=== PATIENT | male | born 2000 | race Caucasian/White ===

== ENCOUNTER 2018-06-03 15:13 | Emergency (ER) | payer BC, SELFPAY ==
[2018-06-03] VITALS (23 sets, daily range): BP systolic 100–127; BP diastolic 48–90; PULSE 92–121; RESP 14–28; TEMP 36.4; O2SAT 98–100
--- NOTE | 2018-06-03 15:21 | DI.CT_ITS ---
SYMPTOM/DIAGNOSIS: FELL, STRUCK HEAD NONCONTRAST HEAD CT: No priors. No intracranial hemorrhage, midline shift or mass effect is identified. There is a normal bowen white matter differentiation. The ventricles are intact. The basilar cisterns are patent. There are mucus retention cysts or polyps in the left maxillary sinus. There does appear to be a small fluid level noted in the left maxillary sinus. The remaining visualized paranasal sinuses are clear. The mastoid air cells are well pneumatized. The calvarium is intact. IMPRESSION: No acute intracranial process. CERVICAL SPINE CT: Multiple contiguous axial images of the cervical spine were obtained. Sagittal and coronal reformatted images were evaluated on the Siemens work station. There are no priors for comparison. There is normal alignment of the cervical spine. No acute fractures or subluxations are seen. The prevertebral soft tissues are unremarkable. IMPRESSION: No acute fractures or subluxations.
--- NOTE | 2018-06-03 15:26 | W.ED.GENAD ---
Discharge Plan Disposition Patient Disposition: HOME Condition: Improving Discharge Details Chief Complaint: Trauma Clinical Impression: Head injury, Accidental marijuana overdose Primary Care Provider: GEOVANNY,LOCAL ED Provider: Eduin Shea Home Meds and New Rx's Prescriptions: No Action venlafaxine [Effexor XR] 37.5 mg Capsule,Extended Release 24hr 37.5 mg PO DAILY RF: 0 Discharge Instructions Instructions: Head Injury (ED) Additional Instructions: Cut down on your MJ use. Do not drive or operate heavy machinery until head clear of MJ. No physical activity until all symptoms of head injury have resolved for seven days. Referrals: [facility] Emergency Dept. [Outside] - Return if symptoms worsen Medical Decision Making Upon arrival patient safely transferred from EMS stretcher to our bed. Collar displaced enough to evaluate c-spine. Tenderness noted. Collar reestablished. Plan to CT head and c-spine. Will complete exam after CT results verified. Patient exam altered do to his intoxication of marijuana, however GCS 15 at this time. He will open eyes, answer questions, and wiggle toes. Identifies right and left tactile sensation. Pt return from CT. ? of epidural hematoma to the occiput? Exam does not appreciate any soft or raised hematoma to the head. Patient is non tender to exam. He does say his left side/arm feels odd. He will follow command with lifting the arm and he has good sensation. He is tender to the abdomen with light palpation. Plan to send back for CT of thoracic spine and abdomen and pelvis. Patient Alert and recognizes friend at bedside, Laurel. He recalls his . Apprised him and GF's of CT impression and lab work. Patient more alert and tells me he will not smoke any more pot. We discussed head injury protocol. Advised no at risk activities until all symptoms resolved. He tells me he has a history f post concussive syndrome. I believe he has recovered enough to go home with friends back t college. Friends tell me they will watch aftter him. Imaging Data Radiologic Study: Imaging: CT Scan (v-rad: 1. Noacute intrcerbral abnormaility or injury. 2. Normal brain. 3. Mucosal retention cyst or polyps are seen in the left maxillary sinus. ) Radiologist's impression: C-Spine: No acute findings. Abd/pelvis: no acute findings. T-Spine CT: no acute findings. Radiologic Study #2: Imaging: CT Scan Radiologist's impression: v-rad CT Abdomen: No acute findings. CT of thoracic spine: No acute findings. Lab Data Lab results reviewed: Yes I reviewed the patient's lab results. Lab results narrative: Elevated sugar 165 otherwise all values within acceptable limits. ECG Data Interpretation: Reviewed with Dr. Gatica. Patient shivering from being cold. Wave form is aberrant from the shivering. Rhythm is sinus tachycardia. HPI General Date/Time Provider Initiated Documentation: 06/03/18 15:21. Limitations to Documentation: altered mental status (patient stoned on MJ). Information obtained by: patient and EMS. History of Present Illness 18 year old M presents to the emergency department with the chief complaint of head injury and under the influence of THC, HPI Narrative: EMS brought in 18 y/o male for reported fall after smoking to much marijuana and striking the back of his head. No report of LOC. Patient does not remember falling but remembers smoking allot of pot. EMS stated he c/o of neck pain for which they placed him a collar. He did vomit during the ride over with EMS. Patient denies any use of etoh or other illicit drugs other than pot. He tells me his neck feels better with the collar on. He is in a inflatable collar. GF arrived , Laurel, and described his fall and head injury. Basically he fell once back into Laurel's arms and she guided him to the ground. No head trauma at that time. He told her he had LOC. When trying to stand up from the ground he lost balance and fell backwards striking the back of his head on the concrete road. Laurel did not witness LOC. Related Data Home Medications Medication Instructions Recorded Confirmed venlafaxine [Effexor XR] 37.5 mg PO DAILY 06/03/18 06/03/18 Allergies Allergy/AdvReac Type Severity Reaction Status Date / Time shellfish derived Allergy Unverified 06/03/18 16:00 General Stated Complaint: Trauma VY: 2 Review of Systems Eyes Reports system reviewed and no additional complaints, except as docu ENT Reports system reviewed and no additional complaints, except as docu Cardiovascular Reports system reviewed and no additional complaints, except as docu Respiratory Reports system reviewed and no additional complaints, except as docu Gastrointestinal Reports abdominal pain, Reports nausea and Reports vomiting Genitourinary Reports system reviewed and no additional complaints, except as docu Musculoskeletal Reports other (neck pain) Neurologic Reports system reviewed and no additional complaints, except as docu PFSH Social History Smoking/Tobacco Use Status: Never Exam Const General: cooperative, no acute distress, intoxicated appearing and other (cold) Nutritional Appearance: thin Orientation: awake Limitations: altered mental status HENMT Head: normal to inspection and no palpable skull fracture Ears: hearing grossly normal bilaterally and external ears normal General nose exam: external nose normal Eyes General: appearance normal, both eyes and all related structures Neck Neck: limited ROM (collar removed. Tender to palpation to the paraspinal musculature and over the c-spine. I did not appreciate any step off. ), no lymphadenopathy and trachea midline Resp Effort & Inspection: normal respiratory effort Auscultation: clear to auscultation bilaterally Cardio Rate: regular rate Rhythm: regular rhythm Heart Sounds: S1 normal and S2 normal GI Palpation: soft and tender in the epigastrum, in the LLQ, in the RLQ, in the LUQ, in the RUQ and other (diffuse in all quadrants. ) Auscultation: normal bowel sounds Course Vital Signs Temperature 36.4 C L 06/03/18 15:15 Pulse 107 H 06/03/18 15:15 Respiratory Rate 16 06/03/18 15:15 Blood Pressure 108/61 06/03/18 15:15 Pulse Oximetry 99 06/03/18 15:15 Temperature 36.4 C L 06/03/18 15:15 Temperature Source Temporal Artery Scan 06/03/18 15:15 Pulse 107 H 06/03/18 15:15 Respiratory Rate 16 06/03/18 15:15 Blood Pressure 108/61 06/03/18 15:15 Blood Pressure Position Supine 06/03/18 15:15 Pulse Oximetry 99 06/03/18 15:15 Oxygen Delivery Method Room Air 06/03/18 15:15 Oxygen Flow Rate 0 06/03/18 15:15
--- NOTE | 2018-06-03 15:38 | ED.GENADUL_ITS ---
Discharge Plan Disposition Patient Disposition: HOME Condition: Improving Discharge Details Chief Complaint: Trauma Clinical Impression: Head injury, Accidental marijuana overdose Primary Care Provider: GEOVANNY,LOCAL ED Provider: Eduin Shea Home Meds and New Rx's Prescriptions: No Action venlafaxine [Effexor XR] 37.5 mg Capsule,Extended Release 24hr 37.5 mg PO DAILY RF: 0 Discharge Instructions Instructions: Head Injury (ED) Additional Instructions: Cut down on your MJ use. Do not drive or operate heavy machinery until head clear of MJ. No physical activity until all symptoms of head injury have resolved for seven days. Referrals: [facility] Emergency Dept. [Outside] - Return if symptoms worsen Medical Decision Making Upon arrival patient safely transferred from EMS stretcher to our bed. Collar displaced enough to evaluate c-spine. Tenderness noted. Collar reestablished. Plan to CT head and c-spine. Will complete exam after CT results verified. Patient exam altered do to his intoxication of marijuana, however GCS 15 at this time. He will open eyes, answer questions, and wiggle toes. Identifies right and left tactile sensation. Pt return from CT. ? of epidural hematoma to the occiput? Exam does not appreciate any soft or raised hematoma to the head. Patient is non tender to exam. He does say his left side/arm feels odd. He will follow command with lifting the arm and he has good sensation. He is tender to the abdomen with light palpation. Plan to send back for CT of thoracic spine and abdomen and pelvis. Patient Alert and recognizes friend at bedside, Laurel. He recalls his . Apprised him and GF's of CT impression and lab work. Patient more alert and tells me he will not smoke any more pot. We discussed head injury protocol. Advised no at risk activities until all symptoms resolved. He tells me he has a history f post concussive syndrome. I believe he has recovered enough to go home with friends back t college. Friends tell me they will watch aftter him. Imaging Data Radiologic Study: Imaging: CT Scan (v-rad: 1. Noacute intrcerbral abnormaility or injury. 2. Normal brain. 3. Mucosal retention cyst or polyps are seen in the left maxillary sinus. ) Radiologist's impression: C-Spine: No acute findings. Abd/pelvis: no acute findings. T-Spine CT: no acute findings. Radiologic Study #2: Imaging: CT Scan Radiologist's impression: v-rad CT Abdomen: No acute findings. CT of thoracic spine: No acute findings. Lab Data Lab results reviewed: Yes I reviewed the patient's lab results. Lab results narrative: Elevated sugar 165 otherwise all values within acceptable limits. ECG Data Interpretation: Reviewed with Dr. Gatica. Patient shivering from being cold. Wave form is aberrant from the shivering. Rhythm is sinus tachycardia. HPI General Date/Time Provider Initiated Documentation: 06/03/18 15:21 . Limitations to Documentation: altered mental status (patient stoned on MJ) . Information obtained by: patient and EMS . History of Present Illness 18 year old M presents to the emergency department with the chief complaint of head injury and under the influence of THC, HPI Narrative: EMS brought in 18 y/o male for reported fall after smoking to much marijuana and striking the back of his head. No report of LOC. Patient does not remember falling but remembers smoking allot of pot. EMS stated he c/o of neck pain for which they placed him a collar. He did vomit during the ride over with EMS. Patient denies any use of etoh or other illicit drugs other than pot. He tells me his neck feels better with the collar on. He is in a inflatable collar. GF arrived , Laurel, and described his fall and head injury. Basically he fell once back into Laurel's arms and she guided him to the ground. No head trauma at that time. He told her he had LOC. When trying to stand up from the ground he lost balance and fell backwards striking the back of his head on the concrete road. Laurel did not witness LOC. Related Data Home Medications Medication Instructions Recorded Confirmed venlafaxine [Effexor XR] 37.5 mg PO DAILY 06/03/18 06/03/18 Allergies Allergy/AdvReac Type Severity Reaction Status Date / Time shellfish derived Allergy Unverified 06/03/18 16:00 General Stated Complaint: Trauma VY: 2 Review of Systems Eyes Reports system reviewed and no additional complaints, except as docu ENT Reports system reviewed and no additional complaints, except as docu Cardiovascular Reports system reviewed and no additional complaints, except as docu Respiratory Reports system reviewed and no additional complaints, except as docu Gastrointestinal Reports abdominal pain, Reports nausea and Reports vomiting Genitourinary Reports system reviewed and no additional complaints, except as docu Musculoskeletal Reports other (neck pain) Neurologic Reports system reviewed and no additional complaints, except as docu PFSH Social History Smoking/Tobacco Use Status: Never Exam Const General: cooperative, no acute distress, intoxicated appearing and other (cold) Nutritional Appearance: thin Orientation: awake Limitations: altered mental status HENMT Head: normal to inspection and no palpable skull fracture Ears: hearing grossly normal bilaterally and external ears normal General nose exam: external nose normal Eyes General: appearance normal, both eyes and all related structures Neck Neck: limited ROM (collar removed. Tender to palpation to the paraspinal musculature and over the c-spine. I did not appreciate any step off. ), no lymphadenopathy and trachea midline Resp Effort & Inspection: normal respiratory effort Auscultation: clear to auscultation bilaterally Cardio Rate: regular rate Rhythm: regular rhythm Heart Sounds: S1 normal and S2 normal GI Palpation: soft and tender in the epigastrum, in the LLQ, in the RLQ, in the LUQ , in the RUQ and other (diffuse in all quadrants. ) Auscultation: normal bowel sounds Course Vital Signs Temperature 36.4 C L 06/03/18 15:15 Pulse 107 H 06/03/18 15:15 Respiratory Rate 16 06/03/18 15:15 Blood Pressure 108/61 06/03/18 15:15 Pulse Oximetry 99 06/03/18 15:15 Temperature 36.4 C L 06/03/18 15:15 Temperature Source Temporal Artery Scan 06/03/18 15:15 Pulse 107 H 06/03/18 15:15 Respiratory Rate 16 06/03/18 15:15 Blood Pressure 108/61 06/03/18 15:15 Blood Pressure Position Supine 06/03/18 15:15 Pulse Oximetry 99 06/03/18 15:15 Oxygen Delivery Method Room Air 06/03/18 15:15 Oxygen Flow Rate 0 06/03/18 15:15
[2018-06-03 15:48] LABS: Abs Immature Grans 0.02 k/cumm (0.0-0.09); Absolute Basophil Count 0.02 k/cumm (0.0-0.2); Absolute Eosinophil Count 0.03 k/cumm (0.0-0.7); Absolute Lymphocyte Count 1.67 k/cumm (1.2-3.4); Absolute Monocyte Count 0.51 k/cumm (0.11-0.7); Absolute Neutrophil Count 4.47 k/cumm (1.2-6.7); Basophils % 0.3; Eosinophils % 0.4; HCT 44.2 % (40.0-50.0); Immature Grans % 0.3; Lymphocytes % 24.9; Mean Corp. HGB Concentration 33.9 g/dL (32.0-36.0); Mean Corpuscular Hemoglobin 29.7 pg (27.0-33.0); Mean Corpuscular Volume 87.5 fL (80-95); Monocytes % 7.6; Neutrophils % 66.5; Platelet Count 171 x1000/uL (130-400); RBC 5.05 m/cumm (4.50-6.00); RBC Distribution Width 12.9 % (11.8-14.1); White Blood Cell Count 6.72 k/cumm (4.4-10.8)
[2018-06-03] MEDS: Ondansetron 4 MG/2 ML VIAL IVP (15:56)
[2018-06-03] MEDS: Normal Saline 1,000 ML 1000 ML IV (15:56)
--- NOTE | 2018-06-03 15:57 | DI.CT_ITS ---
SYMPTOM/DIAGNOSIS: ABD PAIN AFTER FALL ABDOMEN AND PELVIC CT: CT scan of the abdomen and pelvis was performed without intravenous or oral contrast material. Findings: There are no priors for comparison. The lack of IV contrast does limit evaluation of the abdominal organs. The lung bases are clear. The unenhanced visualized portions of the liver, spleen, pancreas, gallbladder, bile duct, adrenal glands, kidneys, ureters and bladder are all unremarkable. The reproductive organs are unremarkable. The bowel is unremarkable. There is a normal appendix is present. The aorta is of normal caliber. No significant abdominal or pelvic adenopathy, ascites or pneumoperitoneum is seen. The bones are intact. IMPRESSION: No acute abnormalities on this noncontrast examination. THORACIC SPINE CT: Routine noncontrast CT scan of the thoracic spine was performed. There is a right convex curvature of the thoracic spine which may be positional. No acute fractures or subluxations are seen. No central spinal canal or neural foraminal stenosis is present. IMPRESSION: No acute fracture or subluxation in the thoracic spine.
[2018-06-03 16:01] LABS: ALT 20 U/L (12-78); AST 15 U/L (15-37); Alkaline Phosphatase 66 U/L (46-116); Anion Gap 12.6 mmol/L (3-11); BUN 10 mg/dL (7-18); Bilirubin, Total 2.3 mg/dL (0.2-1.0); CO2 25.4 mmol/L (21.0-32.0); CREATININE 0.86 mg/dL (0.70-1.30); Calcium 8.8 mg/dL (8.5-10.1); Chloride 102 mmol/L (98-107); Glucose 162 mg/dL (70-100); Lipase 78 U/L (73-393); Potassium 3.2 mmol/L (3.5-5.1); Sodium 140 mmol/L (136-145)
--- NOTE | 2018-06-03 16:13 | DI.VRAD_ITS ---
EXAM: CT Head Without Intravenous Contrast EXAM DATE/TIME: 06/03/2018 3:23 PM CLINICAL HISTORY: 18 years old, male; Injury or trauma; Fall; Initial encounter; Blunt trauma (contusions or hematomas); Consciousness not specified; Injury details: Fell, striking head 2x TECHNIQUE: Axial computed tomography images of the head/brain without intravenous contrast. Coronal and sagittal reformatted images were created and reviewed. COMPARISON: No relevant prior studies available. FINDINGS: Brain: No acute intracerebral abnormality or injury. Normal brain. Ventricles: Normal. No ventriculomegaly. Bones/joints: Normal. No acute fracture. Sinuses: Mucosal retention cysts or polyps are seen in the left maxillary sinus. Mastoid air cells: Normal as visualized. No mastoid effusion. Soft tissues: Normal. IMPRESSION: 1. No acute intracerebral abnormality or injury. 2. Normal brain. 3. Mucosal retention cysts or polyps are seen in the left maxillary sinus. EXAM: CT Cervical Spine Without Intravenous Contrast EXAM DATE/TIME: 06/03/2018 3:23 PM CLINICAL HISTORY: 18 years old, male; Injury or trauma; Fall; Initial encounter; Blunt trauma (contusions or hematomas); Consciousness not specified; Injury details: Fell, striking head 2x TECHNIQUE: Axial computed tomography images of the cervical spine without intravenous contrast. Coronal and sagittal reformatted images were created and reviewed. COMPARISON: No relevant prior studies available. FINDINGS: Vertebrae: No acute fracture. Normal alignment. Discs/Spinal canal/Neural foramina: No spinal stenosis. No neural foraminal narrowing. Soft tissues: Unremarkable. IMPRESSION: No acute findings. Dictated and Authenticated by: Winston Garza MD. Ordering:ZAINA LITTLE MD
--- NOTE | 2018-06-03 16:20 | W.ED.PROC ---
Medical Decision Making 06/03/18 EKG 15: 54 Rate 109, KS 142, QTc 498, QRS 116, sinus tachycardia, no significant ST elevation or depression, no T wave inversions, minimal peaking of T waves in V3. Notable artifact throughout. Patient is shivering. No evidence of Apple waves.
--- NOTE | 2018-06-03 17:37 | DI.VRAD_ITS ---
EXAM: CT Abdomen and Pelvis Without Intravenous Contrast EXAM DATE/TIME: 06/03/2018 4:36 PM CLINICAL HISTORY: 18 years old, male; Injury or trauma; Fall; Initial encounter; Blunt; Generalized; Patient HX: Abdominal pain after fallint to ground TECHNIQUE: Axial computed tomography images of the abdomen and pelvis without intravenous contrast. Coronal and sagittal reformatted images were created and reviewed. COMPARISON: No relevant prior studies available. FINDINGS: Lower thorax: No acute findings. ABDOMEN: Liver: Normal. No mass. Gallbladder and bile ducts: Normal. No calcified stones. No ductal dilation. Pancreas: Normal. No ductal dilation. Spleen: Normal. No splenomegaly. Adrenals: Normal. No mass. Kidneys and ureters: Normal. No hydronephrosis. Stomach and bowel: Normal. No obstruction. No mucosal thickening. Appendix: No evidence of appendicitis. PELVIS: Bladder: Unremarkable as visualized. Reproductive: Unremarkable as visualized. ABDOMEN and PELVIS: Intraperitoneal space: Normal. No free air. No significant fluid collection. Bones/joints: No acute fracture. No dislocation. Soft tissues: Unremarkable. Vasculature: Normal. No abdominal aortic aneurysm. Lymph nodes: Normal. No enlarged lymph nodes. IMPRESSION: No acute findings. Dictated and Authenticated by: Vignesh Guajardo MD. Ordering:ZAINA LITTLE MD
--- NOTE | 2018-06-03 17:42 | DI.VRAD_ITS ---
EXAM: CT Thoracic Spine Without Intravenous Contrast EXAM DATE/TIME: 06/03/2018 4:00 PM CLINICAL HISTORY: 18 years old, male; Injury or trauma; Fall; Initial encounter; Blunt trauma (contusions or hematomas); Patient HX: Fell trying to stand up after falling to ground TECHNIQUE: Axial computed tomography images of the thoracic spine without intravenous contrast. Coronal and sagittal reformatted images were created and reviewed. COMPARISON: No relevant prior studies available. FINDINGS: Vertebrae: No acute fracture. Normal alignment. Discs/Spinal canal/Neural foramina: No spinal stenosis. No neural foraminal narrowing. Soft tissues: Unremarkable. IMPRESSION: No acute findings. Dictated and Authenticated by: Vignesh Guajardo MD. Ordering:ZAINA LITTLE MD
[2018-06-03 18:07] LABS: Bilirubin Negative (Negative); Blood Negative (Negative); Clarity Clear; Glucose Negative (Negative); Ketones Trace mg/dL (Negative); Leukocyte Esterase Negative (Negative); Nitrite Negative (Negative); Specific Gravity 1.015 (1.005-1.025)
[2018-06-03 18:10] LABS: *AMPHETAMINES SCREEN URINE Negative (Negative); *BARBITURATES SCREEN URINE Negative (Negative); *BENZODIAZEPINES SCREEN URINE Negative (Negative); Cannabinoids THC POSITIVE (Negative); Cocaine Screen,Urine Negative (Negative); METHADONE URINE SCREEN Negative (Negative); OPIATES URINE SCREEN Negative (Negative); Tricyclic Antidepressants Negative (Negative)
== END 2018-06-03 18:27 | disposition home or self-care (01) ==
PROVIDERS: Emergency Provider Nurse Practitioner Family
DX: S09.90XA Unspecified injury of head, initial encounter (principal); F12.10 Cannabis abuse, uncomplicated; W01.0XXA Fall on same level from slipping, tripping and stumbling without subsequent striking against object, initial encounter
CPT/HCPCS: 36415; 80053; 80307; 83690; 93005; 96361; 96374; 99285; 70450; 72125; 72128; 74176; 81003; 85025; 93010; J2405

== ENCOUNTER 2018-09-01 00:46 | Outpatient (CLI) | payer BC, SELFPAY ==
--- NOTE | 2018-09-01 13:48 | DI.MRI_ITS ---
SYMPTOMS/DIAGNOSIS: MILD TRAUMATIC BRAIN INJURY, S06.9X0D MRI OF THE BRAIN: Comparison is made with head CT dated May,. T2 sagittal, T1, T2, FLAIR and diffusion axial sequences were performed. There is no evidence of intracranial hemorrhage, mass or infarct. There are no abnormal areas of restricted diffusion or evidence of old hemorrhage. Mucus retention cysts are seen in the left maxillary sinus. The orbits, pituitary and mastoid air cells are unremarkable. IMPRESSION: Evidence of chronic sinus disease. No evidence of an acute abnormality.
== END 2018-09-01 01:06 ==
PROVIDERS: Visit Provider Physical Medicine & Rehabilitation
DX: S06.9X0D Unspecified intracranial injury without loss of consciousness, subsequent encounter (principal); J32.0 Chronic maxillary sinusitis
CPT/HCPCS: 70551

== ENCOUNTER 2018-10-11 16:11 | Emergency (ER) | payer BC, SELFPAY ==
[2018-10-11 16:23] VITALS: BP 127/67; PULSE 72; RESP 12; TEMP 36.8; O2SAT 99
--- NOTE | 2018-10-11 16:38 | ED.GENADUL_ITS ---
Discharge Plan Disposition Patient Disposition: HOME Condition: Good Discharge Details Chief Complaint: Trauma Clinical Impression: Dislocation of proximal interphalangeal joint of left little finger, initial encounter, Abrasion of forearm, left, Contusion of right thigh Primary Care Provider: Haley,Local ED Provider: Amandeep Snyder Home Meds and New Rx's Prescriptions: Continued venlafaxine [Effexor XR] 37.5 mg Capsule,Extended Release 24hr 37.5 mg PO DAILY RF: 0 Discharge Instructions Additional Instructions: Wear the splint on your finger until follow-up with orthopedics in one to two weeks. Keep your wound on your left arm clean and covered. Use ice to help with pain. Advil as needed. Return to ED for signs of wound infection or other concerns. Referrals: Tevin Toney MD [ [facility] STAFF PHYSICIAN] - Medical Decision Making Patient was helmeted when he hit the tree. He did not have loss of consciousn ess. He is neurologically intact. Spine is cleared clinically. Vital signs are normal. Lungs are clear and chest is nontender. Abdomen is benign. Extremities unremarkable other than deformity of the left little finger. He does have an abrasion to the left forearm but no bony tenderness. He has bruising to the right lateral thigh but no bony tenderness and normal ambulation. X-ray of the left little finger is ordered. X-ray shows dislocation of the proximal IP joint. Patient consented to digital block for reduction. Please see procedure note. Once the block had worked reduction of the dislocation was easily done on the first try. Post-reduction x-rays are pending he is given Advil for his pain related to bruising and abrasions. Postreduction x-rays show that the dislocation has been reduced. There does appear to be a little volar plate fracture in that area of the previous dislocation. Patient is placed in an aluminum foam splint. I will have him follow-up with orthopedics in 1-2 weeks. Wear the splint until seen. Ice and Advil as needed. Abrasion was cleaned and wrapped here. He should continue wound care at home. Discharged in good condition. HPI General Mode of arrival: ambulatory . Date/Time Provider Initiated Documentation: 10/11/18 16:29 . Limitations to Documentation: no limitations . Information obtained by: patient . HPI Narrative: Patient here after a skiing accident in which he struck a tree. He was helmeted. He did not have loss of consciousness. He has some anterior neck pain and right lateral thigh pain but his biggest complaint is left little finger injury. He has no posterior neck pain. He has no neurologic symptoms. He has no chest pain or shortness of breath. He has no abdominal pain. He was ambulatory and on his own. Related Data Home Medications Medication Instructions Recorded Confirmed venlafaxine [Effexor XR] 37.5 mg PO DAILY 06/03/18 10/11/18 Allergies Allergy/AdvReac Type Severity Reaction Status Date / Time shellfish derived Allergy Unverified 10/11/18 16:27 General Stated Complaint: Trauma VY: 3 Review of Systems Constitutional Denies headache(s) and Denies weakness ENT Denies headache(s), Denies epistaxis and Reports neck pain Cardiovascular Denies chest pain, Denies syncope and Denies dyspnea Respiratory Denies cough and Denies dyspnea Gastrointestinal Denies abdominal pain, Denies nausea and Denies vomiting Musculoskeletal Denies back pain, Reports deformity, Reports neck pain and Denies numbness Integumentary/Breasts Reports wounds Neurologic Denies syncope, Denies headache(s), Denies focal weakness, Denies numbness, Denies paresthesias and Denies weakness [facility] Social History Smoking and Tabacco status: Never Exam Const General: cooperative, comfortable and no acute distress Orientation: alert and oriented x3 [facility] Head: normocephalic and atraumatic Ears: external ears normal General nose exam: no epistaxis Face and sinus: normal facial exam Eyes Pupils: PERRL EOM: EOM intact bilaterally Neck Neck: trachea midline, supple and other (Bruising and redness right lateral neck.) Chest Chest: no tenderness Resp Effort & Inspection: normal respiratory effort Auscultation: clear to auscultation bilaterally Cardio Rate: regular rate Rhythm: regular rhythm Heart Sounds: S1 normal and S2 normal GI Palpation: soft, not firm and nontender Back/Spine/Pelvis Cervical Spine: cervical ROM normal and No cervical spinal tenderness Thoracic/Lumbar Spine: thoraco-lumbar ROM normal, No thoracic spinal tenderness and No lumbar spinal tenderness Skin Trauma: abrasion (Along the left forearm), no lacerations and other (Bruising noted to the right lateral) Neuro General: alert, oriented x3, gait normal, no focal motor deficits and CN's II-XI intact bilaterally Extrem General: normal exam except as noted Left upper extremity: hand Details: neuromotor exam abnormal, tenderness, swelling and other (Deformity of left little finger.) Course Vital Signs Temperature 98.2 F 10/11/18 16:23 Pulse 72 10/11/18 16:23 Respiratory Rate 12 10/11/18 16:23 Blood Pressure 127/67 10/11/18 16:23 Pulse Oximetry 99 10/11/18 16:23 Temperature 98.2 F 10/11/18 16:23 Temperature Source Temporal Artery Scan 10/11/18 16:23 Pulse 72 10/11/18 16:23 Respiratory Rate 12 10/11/18 16:23 Respiratory Effort Non-Labored 10/11/18 16:26 Blood Pressure 127/67 10/11/18 16:23 Pulse Oximetry 99 10/11/18 16:23 Pain Level 8 10/11/18 16:23 Procedures Orthopedic Joint Reduction Joint #1: Time Out Performed: Yes Side: left Joint Reduction Location: finger Analgesia: digital block Local Anesthesia: Lidocaine 1% Amount of anesthesic used (mL): 2.5 Technique used: traction/counter-traction Post-reduction neuro exam: intact Post-reduction vascular: intact Post Reduction X-Ray Obtained: Yes Splint Applied: Yes Patient Tolerated Procedure: well Orthopedic Splinting/Casting Injury #1: Side: left Upper Extremity Injury Location: finger Upper Extremity Immobilizer: aluminum form splint
--- NOTE | 2018-10-11 16:46 | DI.RAD_ITS ---
SYMPTOM/DIAGNOSIS: TRAUMA, S/P POST REDUCTION DISLOCATION LEFT LITTLE FINGER: Three views. There is a posterior and ulnar dislocation of the proximal interphalangeal joint of the left little finger. No acute fracture is seen. No radiopaque foreign bodies are seen in the soft tissues. IMPRESSION: Acute dislocation of the PIP joint of the left little finger. LEFT LITTLE FINGER: Two views. Comparison is made with examination from earlier in the day. There has been successful reduction of the previously seen dislocation of the PIP joint of the left little finger. Alignment is anatomic. There is a small 1.3 mm. volar plate fracture. The fracture fragment is displaced 1.6 mm. anteriorly. There is soft tissue swelling of the left little finger. IMPRESSION: 1. Successful reduction of the dislocation of the PIP joint of the left little finger. 2. Distracted volar plate fracture from the middle phalanx of the left little finger.
--- NOTE | 2018-10-11 17:17 | DI.VRAD_ITS ---
EXAM: XR Left Finger(s), 2 or More Views EXAM DATE/TIME: 10/11/2018 4:47 PM CLINICAL HISTORY: 18 years old, male; Injury or trauma; Fall; Initial encounter; Dislocation; Severity not specified; Finger; Left; Little finger TECHNIQUE: XR Left finger minimum 2 views. COMPARISON: No relevant prior studies available. FINDINGS: There is posterior lateral dislocation of the fifth finger proximal interphalangeal joint. No displaced fracture identified. Normal bone density. No radiopaque soft tissue foreign body. IMPRESSION: Acute dislocation of the fifth finger proximal interphalangeal joint. Dictated and Authenticated by: Ramone Cárdenas MD. Ordering:IRVING Bernstein MD
[2018-10-11] MEDS: Ibuprofen 600 MG TAB PO (17:26)
--- NOTE | 2018-10-11 18:27 | DI.VRAD_ITS ---
EXAM: XR Left Finger(s), 2 or More Views EXAM DATE/TIME: 10/11/2018 5:36 PM CLINICAL HISTORY: 18 years old, male; Condition or disease; Other: Post reduction; Patient HX: Post reduction of left little finger, done today in er. TECHNIQUE: XR Left finger minimum 2 views. COMPARISON: CR XR finger LT little 10/11/2018 5:05 PM FINDINGS: The fifth finger PIP joint dislocation has been reduced and is now anatomically aligned. There is a distracted fracture of the volar plate of the fifth finger middle phalanx. The fracture fragment is distracted approximately 1.6 mm. There is swelling of the fifth finger soft tissues. No other bone or joint abnormality. IMPRESSION: 1. Relocation of fifth finger PIP joint. 2. Distracted volar plate fracture of the fifth finger middle phalanx. Dictated and Authenticated by: Ramone Cárdenas MD. Ordering:IRVING Bernstein MD
--- NOTE | 2018-10-11 18:33 | NUR.NOTE ---
patient left arm cleansed with saline, area dressed with bactracin under gauze lorraine wrap Nursing Note:
== END 2018-10-11 18:50 | disposition home or self-care (01) ==
PROVIDERS: Emergency Provider Emergency Medicine
DX: S63.277A Dislocation of unspecified interphalangeal joint of left little finger, initial encounter (principal); S70.11XA Contusion of right thigh, initial encounter; S50.812A Abrasion of left forearm, initial encounter; V00.322A Snow-skier colliding with stationary object, initial encounter
CPT/HCPCS: 26770; 73140; 99283